=== PATIENT | female | born 2005 | race Two or more races ===

== ENCOUNTER 2025-07-11 15:01 | Outpatient (AMB) | payer OTHER, SELFPAY ==
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
[2025-07-11 15:15] VITALS: BP 106/60; PULSE 82; RESP 16; TEMP 36.6; O2SAT 98; BMI 23.8
--- OUTSIDE RECORDS SUMMARY | 2025-07-11 18:26 | XMS_ITS | Patient Health Record ---
Author Organization [facility] Address [address] [place] [address] Care Team Providers Care Quality Measurement Specialist Name Role Phone KRISTINE SANDOVAL Unavailable [phone] GRACIA ZIMMER Unavailable [phone] Allergies No Known Allergies Results Component Value Reference Range Notes Chlamydia/GC Amplification-1 [id number] Reviewed date:02/21/2025 10:41:38 AM Interpretation:Negative Performing Lab:[facility], [address], [address], [employer], Phone - [phone], Director - [place] Notes/Report: Chlamydia trachomatis, JAZMYNE Negative Negative Neisseria gonorrhoeae, JAZMYNE Negative Negative Ct, Ng, Trich vag by [id number] Reviewed date:06/23/2025 08:38:38 AM Interpretation:Negative Performing Lab:[facility], [address], [address], [employer], Phone - [phone], Director - [facility] Notes/Report: Chlamydia by JAZMYNE Negative Negative Gonococcus by JAZMYNE Negative Negative Trich vag by JAZMYNE Negative Negative Reason For Referral No Information Medications Medication SIG (Take, Route, Frequency, Duration) Notes Start Date End Date Status Nexplanon Active Cryselle-28 0.3-30 MG-MCG Tablet 1 tablet Orally Once a day; Duration: 84 days 06/21/2025 Active Social History Sex Assigned At : Social History Observation Description Sex Assigned At Female Social History HIV Risk Assessment Social Info Question Answer Notes Additional Questions Is an HIV Risk Asse ssment being conducted? No Reproductive Life Plan: Social Info Question Answer Notes Reproductive Life Plan: Do you want to have chil dren? No, I don't want to have children How sure are you that you will be able to use your control method without any problems? Sure People's plans change. Is it possible you or your partner could ever decide to become ? No Human Trafficking: Social Info Question Answer Notes Human Trafficking Experienced: No PrEP for HIV: Social Info Question Answer Notes PrEP for HIV Is the client nirav sted in beginning/continuing PrEP for HIV? No Sexual History: Social Info Question Answer Notes Sexual History: Sexual History Reviewed: Partner s, Practices, Protection/Past STIs, Prevention of Currently sexually active? Yes Sexually active with: Men Number of male partners 1 Your sexual activities include: vaginal intercourse Reviewed types of EC? No Do you use condoms? Yes Condoms are used: always Number of partners in past 3 months: 1 Number of partners in past year: 1 What is the client's primary method to prevent at the end of their visit? Oral - Combined Hormone Pill Does your partner(s) currently have any STIs? No Completed Gardasil vaccination series? unsure Counseling Provided: Social Info Question Answer Notes Counseling Provided Please indicate the length of time, in minutes, that counseling was provided. 7 Counseling Was Provided By: nalini Drugs/Alcohol: Social Info Question Answer Notes Drug/Alcohol Use Do you or have you used drugs? No Do you or have you used alcohol? No Food Access: Social Info Question Answer Notes Food Access The Client's current access to food is Secure Food Access Relationships: Social Info Question Answer Notes Relationships Has the client exper ienced any of the following: Client has never experienced harmful relationships Housing Social Info Question Answer Notes Housing The client's current living situation is: stable housing Tobacco Use: Social Info Question Answer Notes Tobacco Use: Do you/have you used tobacco? No Tobacco Smoking Status Never smoker Vital Signs Blood pressure diastolic 74 mm Hg 06/21/2025 BMI Percentile 56.23 % 06/21/2025 Height 5'2 in 06/21/2025 Blood pressure systolic 110 mm Hg 06/21/2025 Weight 121.5 lbs 06/21/2025 BMI 22.22 kg/m2 06/21/2025 Procedures Procedure Date Ordered Date Performed Result Body Sit e Nexplanon Removal 06/21/2025 06/21/2025 N/A Encounters Encounter Location Date Provider Diagnosis [facility] [address] [place] [address] [address] [place], [place] [phone] 02/17/2025 GRACIA ZIMMER Encounter for screening for infections with a predominantly sexual mode of transmission Z11.3 ; Counseling, unspecified Z71.9 and Other problems related to lifestyle Z72.89 [facility] [address] [place] [address] [place], [place] [id number] 06/21/2025 KRISTINE BARTONI Nexplanon Removal Z30.49 ; Encounter for other general counseling and advice on contraception Z30.09 ; Encounter for screening for infections with a predominantly sexual mode of transmission Z11.3 and Encounter for initial prescription of contraceptive pills Z30.011 Assessments Encounter Date Diagnosis (ICD Code) Assessment Notes Treatment Notes Treatment Clinical Notes Section Notes 02/17/2025 Encounter for screening for infections with a predominantly sexual mode of transmission (ICD-10 - Z11.3) Discussed STI risks, screenings that are available through [facility] and safe sex. Clt aware of lab processing times and how to view results on portal and how positive results will be communicated Spent 25 minutes doing the following: Chart Prep Obtaining/reviewi ng history Performing medically necessary exam Counseling/Coordi nation of Care Documenting the visit Educating the patient Ordering medication/test/p rocedures Interpretation of test performed by others New Patient: [id number] 15 Minutes 06/21/2025 Encounter for other general counseling and advice on contraception (ICD-10 - Z30.09) Reviewed control options available. Reviewed risk, benefits and side effects of each method. Answered questions and concerns, and used shared decision-making to choose method. Need 2 out of 3 Sections from A-C Section A) Problems (only need one from below) Two or more self-limited or minor programs Section B) Data (at least one of the following categories in this section) Category 1: (Choose 2 of the following): Order unique tests Review test results (each unique test counts as one) Category 2: Assessment requiring an independent historian Section C) Risk Document low risk of morbidity/mortali ty 06/21/2025 Nexplanon Removal (ICD-10 - Z30.49) Reviewed aftercare instructions and immediate return to fertility. Need 2 out of 3 Sections from A-C Section A) Problems (only need one from below) Two or more self-limited or minor programs Section B) Data (at least one of the following categories in this section) Category 1: (Choose 2 of the following): Order unique tests Review test results (each unique test counts as one) Category 2: Assessment requiring an independent historian Section C) Risk Document low risk of morbidity/mortali ty 06/21/2025 Encounter for screening for infections with a predominantly sexual mode of transmission (ICD-10 - Z11.3) Reviewed routine screening, safe sex and consistent barrier protection. Aware of window period for testing and testing options. Discussed symptoms that would warrant further evaluation and follow-up care Need 2 out of 3 Sections from A-C Section A) Problems (only need one from below) Two or more self-limited or minor programs Section B) Data (at least one of the following categories in this section) Category 1: (Choose 2 of the following): Order unique tests Review test results (each unique test counts as one) Category 2: Assessment requiring an independent historian Section C) Risk Document low risk of morbidity/mortali ty 02/17/2025 Counseling, unspecified (ICD-10 - Z71.9) Reassured of normal pelvic exam. Nabothian cysts are common and benign. Can return if continued concerns Spent 25 minutes doing the following: Chart Prep Obtaining/reviewi ng history Performing medically necessary exam Counseling/Coordi nation of Care Documenting the visit Educating the patient Ordering medication/test/p rocedures Interpretation of test performed by others New Patient: [id number] 15 Minutes 06/21/2025 Encounter for initial prescription of contraceptive pills (ICD-10 - Z30.011) Reviewed risks, benefits, advantages, disadvantages, side effects, effectiveness, how to take pill, missed pill protocol, ACHES emergency symptoms. Discussed pill does not protect against STIs. BUM x 7 days with SHARIF start. Return in 3 months for pill check. Need 2 out of 3 Sections from A-C Section A) Problems (only need one from below) Two or more self-limited or minor programs Section B) Data (at least one of the following categories in this section) Category 1: (Choose 2 of the following): Order unique tests Review test results (each unique test counts as one) Category 2: Assessment requiring an independent historian Section C) Risk Document low risk of morbidity/mortali ty 02/17/2025 Other problems related to lifestyle (ICD-10 - Z72.89) Spent 25 minutes doing the following: Chart Prep Obtaining/reviewi ng history Performing medically necessary exam Counseling/Coordi nation of Care Documenting the visit Educating the patient Ordering medication/test/p rocedures Interpretation of test performed by others New Patient: [id number] 15 Minutes Plan Of Treatment No Information Insurance Providers Payer Name Payer Address Payer Phone Subscriber Number Group Number Insured Name Patient Relationship to Insured Coverage Start Date Coverage End Date [facility] [address] [place] [id number] Roni Marquez Self - patient is the insured Medical (General) History Medical History History ICD Code No significant problems
--- OUTSIDE RECORDS SUMMARY | 2025-07-11 18:26 | XMS_ITS | Clinical Summary ---
Author Organization [facility] Address [address] [place] [address] Phone Care Team Providers Care Practice Coordinator Name Role Phone Physician, No Pcp Primary Care Provider Unavaila ble Allergies No known active allergies Social History Tobacco Use Types Packs/Day Years Used Date Smoking Tobacco: Never Assessed Comments Unknown Sex and Gender Information Value Date Recorded Sex Assigned at Not on file Legal Sex Female 4:47 AM EST Gender Identity Not on file Sexual Orientation Not on file Obstetrics History Growth Chart Information Age Height Weight Xiprst-rlw-weem th Percentile BMI Percentile Head Circum Head Circum Percentile Date 19 years 157.5 cm (5' 2 ) 54.4 kg (120 lb) 53.91%* 2024 * [facility] (Girls, 2-20 Years) Last Filed Vital Signs Vital Sign Reading Time Taken Comments Blood Pressure 116/69 01/21/2025 10:17 PM EDT Pulse 70 01/21/2025 10:17 PM EDT Temperature 36.8 C (98.2 F) 01/21/2025 10:17 PM EDT Respiratory Rate 20 01/21/2025 10:17 PM EDT Oxygen Saturation 98% 01/21/2025 10:17 PM EDT Inhaled Oxygen Concentration - - Weight 54.4 kg (120 lb) 01/21/2025 6:42 PM EDT Height 157.5 cm (5' 2 ) 01/21/2025 6:42 PM EDT Body Mass Index 21.95 01/21/2025 6:42 PM EDT Plan of Treatment Health Maintenance Due Date Last Done Comments Gonorrhea/Chlamydia Screening 2005 Varicella Vaccines (1 of 2 - 13+ 2-dose series) 2018 HPV Vaccines (1 - 3-dose series) 2020 Meningococcal B Vaccine (1 o f 2 - Standard) 2021 DTaP,Tdap,and Td Vaccines (1 - Tdap) 2024 Hepatitis B Vaccines (1 of 3 - 19+ 3-dose series) 2024 Depression Screening 09/15/2024 Annual Well Child Visit (3-2 1 years old) 01/22/2025 HIV Screening 01/22/2025 Hepatitis C Screening 01/22/2025 Social Influencers of Health Screening 01/22/2025 COVID-19 Vaccine (1 - 2023-2 5 season) 2025 Influenza Vaccine (#1) 2025 RSV Immunization Adult Patie nts (1 - 1-dose 75+ series) 2080 HIB Vaccines Aged Out No longer eligi ble based on patient's age to complete this topic Hepatitis A Vaccines Aged Out No long er eligible based on patient's age to complete this topic IPV Vaccines Aged Out No longer eligi ble based on patient's age to complete this topic MMR Vaccines Aged Out No longer eligi ble based on patient's age to complete this topic Meningococcal ACWY Vaccine Aged Out N o longer eligible based on patient's age to complete this topic Pneumococcal Vaccine: Pediat rics (0 to 5 Years) and At-Risk Patients (6 to 49 Years) Aged Out No longer eligible b ased on patient's age to complete this topic RSV Immunization Patients Un lenka 20 months Aged Out No longer eligible b ased on patient's age to complete this topic Insurance [employer] GENER[employer] Care Teams Practice Coordinator Relationship Specialty Start Date End Date Physician, No Pcp PCP - General 01/21/25
== END 2025-07-11 15:50 | disposition home or self-care (01) ==
LOC: HO.HMCFMS 15:02
PROVIDERS: Visit Provider Student in an Organized Health Care Education/Training Program
DX: K59.09 Other constipation (principal); L70.9 Acne, unspecified; R10.20 Pelvic and perineal pain unspecified side; N88.8 Other specified noninflammatory disorders of cervix uteri

== ENCOUNTER 2025-07-11 15:01 | Outpatient (REF) | payer OTHER, SELFPAY ==
[2025-07-11 18:00] LABS: MANUAL DIFF FLAG NO
[2025-07-11 18:06] LABS: Hematocrit 36.3 % (37.0-47.0); Hemoglobin 11.3 g/dl (12.0-16.0); Imm Gran Abs Auto 0.04 X10*3/uL (0.00-0.03); Imm Gran Pct Auto 0.4 % (0.0-0.4); Lymphocytes Absolute Auto 2.6 X10*3/uL (1.2-4.9); Mean Corpuscular HGB Conc 31.1 g/dl (31.0-35.0); Mean Corpuscular Hemoglobin 26.0 pg (27.0-33.0); Mean Corpuscular Volume 83.4 fL (80.0-98.0); NRBC Abs Auto 0.000 X10*3/uL (0.0-0.012); NRBC Pct Auto 0.0 /100WBC (0.0-0.2); Platelet Count 220 X10*3/uL (160-400); Red Blood Count 4.35 X10*6/uL (4.20-5.50); White Blood Count 11.1 X10*3/uL (4.8-10.8)
[2025-07-11 18:39] LABS: Appearance Urine Clear; Glucose Urine UA Negative (Negative); PH 6.0 (5.0-9.0); Specific Gravity - Urine >= 1.030 (1.005-1.025)
[2025-07-11 18:41] LABS: Alanine Aminotransferase 31 U/L (0-31); Albumin Level 4.4 g/dL (3.5-5.0); Alkaline Phosphatase 99 U/L (39-117); Anion Gap 11 (12-20); Aspartate Amino Transferase 26 U/L (5-31); Blood Urea Nitrogen 12 mg/dL (9-16); Calcium 9.1 mg/dL (8.4-10.2); Carbon Dioxide 24 mmol/L (22-29); Chloride 107 mmol/L (96-108); Cholesterol 152 mg/dL (<200); Estimated Glomerular Filt Rate > 60; HDL Cholesterol 65 mg/dL (>40); Magnesium 1.9 mg/dL (1.6-2.6); Potassium 3.4 mmol/L (3.3-5.1); Sodium 139 mmol/L (135-145); Total Protein 7.7 g/dL (6.5-8.0); Triglycerides 80 mg/dL (<150)
[2025-07-11 19:09] LABS: Folate 7.3 ng/mL (> or = 4.0); Vitamin B12 487 pg/mL (200-900)
[2025-07-12 03:43] LABS: HBS Num1 5.82 mIU/mL (0-7.99); HBsAGNum1 0.38 S/CO (0.00-0.99); HIV Num 1 0.05 S/CO (0.00-0.99); Hepatitis B Surface Antigen Negative (Negative); ~HepC Num1 0.26 S/CO (0.00-0.79); ~Hepatitis B Surface Antibody NONREACTIVE (Nonreactive); ~Hepatitis C Antibody Nonreactive (Nonreactive)
[2025-07-12 04:15] LABS: CT PCR Urine NOT DETECTED (Not Detect.); NG PCR Urine NOT DETECTED (Not Detect.)
[2025-07-14 21:18] LABS: Chlamydia Trachomatis IgA <1:16 titer (<1:16)
[2025-07-15 12:04] LABS: VITAMIN D (1,25 OH) D3 88 pg/mL; Vit D (1,25-Dihydroxy) Total 88 pg/mL (18-72); Vitamin D (1,25 OH) D2 <8 pg/mL
== END 2025-07-11 15:02 | disposition home or self-care (01) ==
LOC: HO.HKASLDS 15:01
PROVIDERS: PCP Student in an Organized Health Care Education/Training Program; Visit Provider Student in an Organized Health Care Education/Training Program
DX: Z13.9 Encounter for screening, unspecified (principal); K59.09 Other constipation; L70.9 Acne, unspecified; N88.8 Other specified noninflammatory disorders of cervix uteri; Z79.899 Other long term (current) drug therapy
CPT/HCPCS: 80053; 80061; 81003; 82607; 82652; 82746; 83036; 83735; 84443; 85025; 86631; 86632; 86706; 86803; 87340; 87389; 87491; 87591; 99202